=== PATIENT | male | born 1940 | race Asian ===

== ENCOUNTER 2023-01-11 12:04 | Emergency (ER) | payer OTHER ==
[~2023-01-11] VITALS: Ht 167.6 cm; Wt 61.8 kg
[2023-01-11] MEDS ORDERED: EPOE4000 (12:35)
[2023-01-11] MEDS ORDERED: FERR325T27 PO (12:35)
[2023-01-11] MEDS ORDERED: ATOR40TA28 PO (12:35)
[2023-01-11] MEDS ORDERED: AMLO-257 PO (12:35)
[2023-01-11] MEDS ORDERED: LUPR22.5 IM (12:35)
[2023-01-11] MEDS ORDERED: ALLO-97 PO (12:35)
[2023-01-11] MEDS ORDERED: FURO40 PO (12:35)
[2023-01-11] MEDS ORDERED: LINA5TAB PO (12:35)
[2023-01-11] MEDS ORDERED: CARV25 PO (12:35)
[2023-01-11] MEDS ORDERED: PANT-31 PO (12:35)
[2023-01-11] MEDS ORDERED: CILO100T3 PO (12:35)
[2023-01-11] MEDS ORDERED: ASPI-1450 PO (12:35)
[2023-01-11] MEDS ORDERED: TELMISARTAN PO (12:35)
[2023-01-11] MEDS ORDERED: TAMS-13 PO (12:35)
[2023-01-11] MEDS ORDERED: ACETAMINOPHEN 500 MG TABLET PO ONE (13:45)
[2023-01-11 16:15] VITALS: BP 143/54
[2023-01-11] MEDS ORDERED: ACET-2247 PO (16:38)
== END 2023-01-11 16:38 | disposition home or self-care (01) ==
LOC: EMS 12:14
DX: S13.4XXA Sprain of ligaments of cervical spine, initial encounter (principal); I11.0 Hypertensive heart disease with heart failure; I50.9 Heart failure, unspecified; E78.00 Pure hypercholesterolemia, unspecified; M10.9 Gout, unspecified; Z86.73 Personal history of transient ischemic attack (TIA), and cerebral infarction without residual deficits; V89.2XXA Person injured in unspecified motor-vehicle accident, traffic, initial encounter; Y93.89 Activity, other specified; Y92.89 Other specified places as the place of occurrence of the external cause; Y99.8 Other external cause status
CPT/HCPCS: 70450; 72125; 72128; 72131; 82962; 99284